=== PATIENT | female | born 1955 | race Caucasian/White ===

== ENCOUNTER → 2016-02-20 | Outpatient (CLI) | payer BC ==
--- NOTE | 2016-02-20 15:48 | MAMMOGRAPHY REPORT ---
BILATERAL DIGITAL SCREENING MAMMOGRAM TOMOSYNTHESIS WITH CAD: 02/20/2016 CLINICAL HISTORY: Routine screening. Patient has no complaints. TECHNIQUE: Breast tomosynthesis in addition to standard 2D mammography was performed. Current study was also evaluated with a Computer Aided Detection (CAD) system. Tomosynthesis images were obtaine d of the implant displaced views. COMPARISON: Comparison is made to exams dated: 02/12/2015 mammogram, 01/30/2013 mammogram, 02/02/20 14 mammogram, 01/04/2012 mammogram, 12/22/2010 mammogram, and 09/17/2009 mammogram - [facility]. BREAST COMPOSITION: The tissue of both breasts is heterogeneously dense, which may obscure small ma sses. FINDINGS: No suspicious masses, calcifications, or areas of architectural distortion are noted in e ither breast. There has been no significant interval change compared to prior exams. Bilateral subp ectoral silicone implants are stable in appearance. Scattered bilateral benign-appearing calcificat ions are not significantly changed. IMPRESSION: ACR BI-RADS CATEGORY 2: BENIGN There is no mammographic evidence of malignancy. A 1 year screening mammogram is recommended. The p atient will receive written notification of the results. Approximately 10% of breast cancers are not detected with mammography. A negative mammographic repor t should not delay biopsy if a clinically suggestive mass is present. Selin Capps M.D. ah/:02/20/2016 14:54:01 Gasoline Truck Operator: Adelina Graham RT(R)(M), [facility] letter sent: Normal 1/2 BI-RADS Code: ACR BI-RADS Category 2: Benign
== END | disposition home or self-care (01) ==
LOC: C.MAMM 12:57
PROVIDERS: ATTEND Obstetrics & Gynecology
DX: Z12.31 Encounter for screening mammogram for malignant neoplasm of breast (principal)

== ENCOUNTER → 2016-02-25 | Outpatient (CLI) | payer BC ==
--- NOTE | 2016-02-25 13:32 | DIAGNOSTIC IMAGING REPORT ---
MRI THE BRAIN AND PITUITARY WITHOUT AND WITH GADOLINIUM CLINICAL HISTORY: Pituitary microadenoma. Headaches, dizziness. COMPARISON STUDY: 2008 FINDINGS: Imaging was performed in the axial sagittal and coronal planes before and after the administration of 7 cc of intravenous Gadavist. Axial diffusion-weighted images reveal no evidence of acute or subacute infarction. There is no evidence of pathologic ventricular dilatation. There are no abnormal flow voids. Proton density T2-weighted and FLAIR images reveal no significant parenchymal signal abnormalities. Dynamic images were obtained through the pituitary. Gland has a bilobed appearance. The optic chiasm appears normal. There is a 4 mm focus of decreased enhancement within the left aspect of the gland on the early postcontrast images. The findings are consistent with a small left-sided microadenoma. Postcontrast whole brain images reveal no pathologically enhancing lesions. There are postsurgical changes in the paranasal sinuses. IMPRESSION: 1. 4 mm pituitary microadenoma involving the left aspect of the gland 2. No evidence of acute or subacute infarction 3. With the exception of the small pituitary microadenoma, no pathologic masses are visualized. Electronically signed by: Kraig Luke M.D. 02/25/2016 1:30 PM Dictated Date/Time: 02/25/2016 1:23 PM
== END | disposition home or self-care (01) ==
LOC: C.MRI 12:55
PROVIDERS: ATTEND Psychiatry & Neurology Neurology
DX: D49.7 Neoplasm of unspecified behavior of endocrine glands and other parts of nervous system (principal)

== ENCOUNTER → 2016-03-15 | Outpatient (CLI) | payer BC | END | disposition home or self-care (01) | LOC: C.PAPS 09:56 | PROVIDERS: ATTEND Obstetrics & Gynecology | DX: Z01.419 Encounter for gynecological examination (general) (routine) without abnormal findings (principal) ==

== ENCOUNTER → 2016-04-26 | Outpatient (CLI) | payer BC ==
[2016-04-26 11:33] LABS: ESTIMATED AVERAGE GLUCOSE 126 mg/dl; HA1C FLAG Normal (Normal)
[2016-04-26 14:42] LABS: ALT/SGPT 28 U/L (12-78); AST/SGOT 16 U/L (15-37); BLOOD UREA NITROGEN 21 mg/dl (7-18); BUN/CREATININE RATIO 21.9 (10-20); CALCIUM 9.1 mg/dl (8.5-10.1); CARBON DIOXIDE 28 mmol/L (21-32); CHLORIDE 105 mmol/L (98-107); CREATININE 0.95 mg/dl (0.60-1.20); GLUCOSE 118 mg/dl (70-99); POTASSIUM 4.2 mmol/L (3.5-5.1); SODIUM 141 mmol/L (136-145)
[2016-04-26 14:46] LABS: CHOLESTEROL 235 mg/dl (0-200); CHOLESTEROL/HDL RATIO 3.7; HDL CHOLESTEROL 64 mg/dl; LDL CHOLESTEROL CALCULATED 155 mg/dl; TRIGLYCERIDES 79 mg/dl (0-150); VERY LOW DENSITY LIPOPROT CALC 16 mg/dl
== END | disposition home or self-care (01) ==
LOC: C.LABBC 09:16
PROVIDERS: ATTEND Internal Medicine
DX: Z00.00 Encounter for general adult medical examination without abnormal findings (principal); E78.5 Hyperlipidemia, unspecified; I10 Essential (primary) hypertension; R73.9 Hyperglycemia, unspecified

== ENCOUNTER → 2016-04-30 | Outpatient (CLI) | payer BC ==
[2016-04-30 17:41] LABS: BASO % 0.6 %; BASO ABS # 0.04 K/uL (0-0.2); COMPLETE YES; EOS % 3.1 %; HEMATOCRIT 38.9 % (37-47); IG% 0.2 %; LYMPH % 38.1 %; LYMPH ABS # 2.42 K/uL (1.2-3.4); MEAN CELL VOLUME 92.6 fL (80-100); MEAN CORPUSCULAR HEMOGLOBIN 31.7 pg (25-34); MEAN CORPUSCULAR HGB CONC 34.2 g/dl (32-36); MEAN PLATELET VOLUME 9.7 fL (7.4-10.4); MONO % 10.7 %; NEUT % 47.3 %; PLATELET COUNT 421 K/uL (130-400); WHITE BLOOD COUNT 6.35 K/uL (4.8-10.8)
== END | disposition home or self-care (01) ==
LOC: C.LAB1850 16:41
PROVIDERS: ATTEND Internal Medicine
DX: K62.5 Hemorrhage of anus and rectum (principal)

== ENCOUNTER → 2016-06-23 | Outpatient (CLI) | payer BC ==
[2016-06-23 10:46] LABS: BASO % 0.9 %; BASO ABS # 0.05 K/uL (0-0.2); COMPLETE YES; EOS % 4.3 %; HEMATOCRIT 40.8 % (37-47); IG% 0.2 %; LYMPH % 30.4 %; LYMPH ABS # 1.71 K/uL (1.2-3.4); MEAN CELL VOLUME 94.2 fL (80-100); MEAN CORPUSCULAR HEMOGLOBIN 31.2 pg (25-34); MEAN CORPUSCULAR HGB CONC 33.1 g/dl (32-36); MEAN PLATELET VOLUME 9.5 fL (7.4-10.4); MONO % 9.8 %; NEUT % 54.4 %; PLATELET COUNT 421 K/uL (130-400); RED BLOOD COUNT 4.33 M/uL (4.2-5.4); WHITE BLOOD COUNT 5.62 K/uL (4.8-10.8)
[2016-06-23 11:16] LABS: ALT/SGPT 26 U/L (12-78); AST/SGOT 16 U/L (15-37); BLOOD UREA NITROGEN 16 mg/dl (7-18); BUN/CREATININE RATIO 18.5 (10-20); CALCIUM 9.2 mg/dl (8.5-10.1); CARBON DIOXIDE 28 mmol/L (21-32); CHLORIDE 105 mmol/L (98-107); CREATININE 0.86 mg/dl (0.60-1.20); ESTIMATED AVERAGE GLUCOSE 126 mg/dl; GLUCOSE 110 mg/dl (70-99); HA1C FLAG Normal (Normal); POTASSIUM 4.1 mmol/L (3.5-5.1); SODIUM 140 mmol/L (136-145)
[2016-06-23 11:27] LABS: ALB/GLOB RATIO 1.2 (0.9-2); ALKALINE PHOSPHATASE 81 U/L (45-117); CHOLESTEROL 223 mg/dl (0-200); CHOLESTEROL/HDL RATIO 3.2; HDL CHOLESTEROL 69 mg/dl; LDL CHOLESTEROL CALCULATED 141 mg/dl; TRIGLYCERIDES 66 mg/dl (0-150); VERY LOW DENSITY LIPOPROT CALC 13 mg/dl
[2016-06-23 12:48] LABS: LYME DISEASE AB IGG NEG (NEG)
[2016-06-23 12:52] LABS: LYME DISEASE AB IGM NEG (NEG)
== END | disposition home or self-care (01) ==
LOC: C.LABBC 08:36
PROVIDERS: ATTEND Internal Medicine
DX: R42 Dizziness and giddiness (principal); E78.5 Hyperlipidemia, unspecified; R73.9 Hyperglycemia, unspecified

== ENCOUNTER → 2016-07-22 | Outpatient (CLI) | payer BC ==
--- NOTE | 2016-07-22 14:01 | DIAGNOSTIC IMAGING REPORT ---
RIGHT KNEE 3 VIEWS CLINICAL HISTORY: Right knee pain. FINDINGS: AP, lateral, and sunrise views of the right knee are obtained. No prior studies are available for comparison at the time of dictation. The skeletal structures are well mineralized. No fracture is seen. There is only minimal tricompartmental degenerative joint space narrowing. There are tiny lateral marginal osteophytes. No joint effusion is seen. The overlying soft tissues are within normal limits. IMPRESSION: No acute bony abnormality is seen in the right knee. Electronically signed by: Cheng De Jesus M.D. 07/22/2016 1:59 PM Dictated Date/Time: 07/22/2016 1:57 PM
== END | disposition home or self-care (01) ==
LOC: C.RAD1850 13:27
PROVIDERS: ATTEND Physician Assistant
DX: M25.561 Pain in right knee (principal)

== ENCOUNTER → 2016-10-29 | Outpatient (CLI) | payer BC ==
[2016-10-29 11:43] LABS: ESTIMATED AVERAGE GLUCOSE 131 mg/dl; HA1C FLAG Normal (Normal)
[2016-10-29 14:23] LABS: BLOOD UREA NITROGEN 16 mg/dl (7-18); BUN/CREATININE RATIO 19.9 (10-20); CARBON DIOXIDE 29 mmol/L (21-32); CHLORIDE 106 mmol/L (98-107); CREATININE 0.82 mg/dl (0.60-1.20); GLUCOSE 114 mg/dl (70-99); POTASSIUM 4.4 mmol/L (3.5-5.1); SODIUM 141 mmol/L (136-145)
[2016-10-29 14:28] LABS: CHOLESTEROL 234 mg/dl (0-200); CHOLESTEROL/HDL RATIO 3.4; HDL CHOLESTEROL 68 mg/dl; LDL CHOLESTEROL CALCULATED 153 mg/dl; TRIGLYCERIDES 66 mg/dl (0-150); VERY LOW DENSITY LIPOPROT CALC 13 mg/dl
== END | disposition home or self-care (01) ==
LOC: C.LABBC 09:11
PROVIDERS: ATTEND Internal Medicine
DX: R73.9 Hyperglycemia, unspecified (principal); E78.5 Hyperlipidemia, unspecified

== ENCOUNTER → 2017-01-25 | Outpatient (CLI) | payer BC ==
[2017-01-25 13:55] LABS: ALT/SGPT 25 U/L (12-78); AST/SGOT 16 U/L (15-37); BLOOD UREA NITROGEN 17 mg/dl (7-18); CALCIUM 9.4 mg/dl (8.5-10.1); CARBON DIOXIDE 27 mmol/L (21-32); CHLORIDE 104 mmol/L (98-107); CREATININE 0.97 mg/dl (0.60-1.20); GLUCOSE 116 mg/dl (70-99); POTASSIUM 4.6 mmol/L (3.5-5.1); SODIUM 139 mmol/L (136-145)
[2017-01-26 07:01] LABS: ESTIMATED AVERAGE GLUCOSE 128 mg/dl; HA1C FLAG Normal (Normal)
== END | disposition home or self-care (01) ==
LOC: C.LABBC 09:17
PROVIDERS: ATTEND Internal Medicine
DX: E78.5 Hyperlipidemia, unspecified (principal); I10 Essential (primary) hypertension; R73.9 Hyperglycemia, unspecified

== ENCOUNTER → 2017-01-25 | Outpatient (CLI) | payer BC ==
[~2017-01-25] VITALS: Ht 163.8 cm; Wt 70.5 kg
[2017-01-25 13:15] VITALS: BP 135/75; PULSE 97; Ht 163.8 cm; Wt 70.5 kg
== END | disposition home or self-care (01) ==
LOC: C.NEUR 11:58
PROVIDERS: ATTEND Internal Medicine Pulmonary Disease
DX: G47.33 Obstructive sleep apnea (adult) (pediatric) (principal)

== ENCOUNTER → 2017-02-23 | Outpatient (CLI) | payer BC, OTHER ==
--- NOTE | 2017-02-24 14:40 | MAMMOGRAPHY REPORT ---
BILATERAL DIGITAL SCREENING MAMMOGRAM TOMOSYNTHESIS WITH CAD: 02/23/2017 CLINICAL HISTORY: Patient presents for routine screening. S/P bilateral augmentation. TECHNIQUE: Breast tomosynthesis in addition to standard 2D mammography was performed. Current study was also evaluated with a Computer Aided Detection (CAD) system. Tomosynthesis images were obtained of the implant displaced views only. COMPARISON: Comparison is made to exams dated: 02/20/2016 mammogram, 02/12/2015 mammogram, 02/01/2014 mammogram, 01/30/2013 mammogram, 01/04/2012 mammogram, and 12/22/2010 mammogram - [facility]. BREAST COMPOSITION: The tissue of both breasts is heterogeneously dense, which may obscure small mas ses. FINDINGS: No suspicious masses, calcifications, or areas of architectural distortion are noted in ei ther breast. There has been no significant interval change compared to prior exams. Bilateral subpec josephine silicone implants are stable in appearance. Scattered bilateral benign-appearing calcification s are not significantly changed. IMPRESSION: ACR BI-RADS CATEGORY 2: BENIGN There is no mammographic evidence of malignancy. A 1 year screening mammogram is recommended. The pa tient will receive written notification of the results. Approximately 10% of breast cancers are not detected with mammography. A negative mammographic report should not delay biopsy if a clinically suggestive mass is present. Selin Capps M.D. /:02/24/2017 07:36:32 Elevator Pilot: Dayna MIRANDA)(Hemanth), [facility] letter sent: Normal 1/2 BI-RADS Code: ACR BI-RADS Category 2: Benign
== END | disposition home or self-care (01) ==
LOC: C.MAMM 16:46
PROVIDERS: ATTEND Internal Medicine
DX: Z12.31 Encounter for screening mammogram for malignant neoplasm of breast (principal); Z98.82 Breast implant status

== ENCOUNTER → 2017-03-01 | Outpatient (CLI) | payer OTHER | END | disposition home or self-care (01) | LOC: C.PAPS 13:47 | PROVIDERS: ATTEND Obstetrics & Gynecology | DX: Z12.4 Encounter for screening for malignant neoplasm of cervix (principal); Z78.0 Asymptomatic menopausal state; Z87.410 Personal history of cervical dysplasia ==

== ENCOUNTER → 2017-04-25 | Outpatient (CLI) | payer OTHER ==
[2017-04-25 11:04] LABS: HEMOGLOBIN A1C 6.1 % (4.5-5.6)
[2017-04-25 11:16] LABS: ALT/SGPT 24 U/L (12-78); AST/SGOT 16 U/L (15-37); BLOOD UREA NITROGEN 17 mg/dl (7-18); CALCIUM 9.3 mg/dl (8.5-10.1); CARBON DIOXIDE 27 mmol/L (21-32); CHOLESTEROL 219 mg/dl (0-200); CREATININE 0.96 mg/dl (0.60-1.20); GLUCOSE 117 mg/dl (70-99); POTASSIUM 4.6 mmol/L (3.5-5.1); SODIUM 138 mmol/L (136-145)
[2017-04-25 11:19] LABS: LDL CHOLESTEROL CALCULATED 142 mg/dl
== END | disposition home or self-care (01) ==
LOC: C.LABBC 07:38
PROVIDERS: ATTEND Internal Medicine
DX: E78.5 Hyperlipidemia, unspecified (principal); R73.9 Hyperglycemia, unspecified

== ENCOUNTER → 2017-07-01 | Outpatient (CLI) | payer OTHER ==
--- NOTE | 2017-07-01 08:19 | DIAGNOSTIC IMAGING REPORT ---
ABDOMEN LIMITED (US) CLINICAL HISTORY: 61 years-old Female presenting with R10.11 Abdominal pain, acute, right upper quadrant RUQ tenderness. TECHNIQUE: Real-time grayscale and limited color Doppler ultrasound imaging of the abdomen limited to the right upper quadrant was performed. COMPARISON: None. FINDINGS: Pancreas: Visualized portions of the pancreatic head and body normal. Liver: Normal echogenicity and echotexture. The liver measures 16.7 cm in maximal sagittal dimension. No sonographic evidence of hepatic mass. Main portal vein patent with normal directional flow. Biliary: No intrahepatic biliary ductal dilatation. Common bile duct measures up to 5 mm in diameter. Gallbladder: No evidence of gallstones, gallbladder wall thickening, gallbladder distention, or pericholecystic fluid or inflammatory change. Right kidney: Normal in appearance without evidence of hydronephrosis. Ascites: None. Other: None. IMPRESSION: No cholelithiasis or biliary ductal dilatation. Electronically signed by: Ankur Barrera M.D. 07/01/2017 8:18 AM Dictated Date/Time: 07/01/2017 7:52 AM
== END | disposition home or self-care (01) ==
LOC: C.ULTR 07:05
PROVIDERS: ATTEND Physician Assistant
DX: R10.11 Right upper quadrant pain (principal)

== ENCOUNTER → 2017-09-06 | Outpatient (CLI) | payer OTHER ==
[2017-09-06 09:35] LABS: HEMOGLOBIN A1C 6.3 % (4.5-5.6)
[2017-09-06 09:51] LABS: BLOOD UREA NITROGEN 16 mg/dl (7-18); CALCIUM 8.7 mg/dl (8.5-10.1); CARBON DIOXIDE 26 mmol/L (21-32); CHOLESTEROL 213 mg/dl (0-200); CREATININE 0.85 mg/dl (0.60-1.20); GLUCOSE 116 mg/dl (70-99); LDL CHOLESTEROL CALCULATED 149 mg/dl; POTASSIUM 4.8 mmol/L (3.5-5.1); SODIUM 141 mmol/L (136-145)
== END | disposition home or self-care (01) ==
LOC: C.LAB1850 08:04
PROVIDERS: ATTEND Internal Medicine
DX: E78.5 Hyperlipidemia, unspecified (principal); R73.9 Hyperglycemia, unspecified; I10 Essential (primary) hypertension